=== PATIENT | female | born 1980 | race African-American/Black ===

== ENCOUNTER 2016-09-19 16:20 | Emergency (ER) | payer OTHER ==
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
--- NOTE | ~2016-09-19 | EKG ---
PATIENT: STEVEN GARCIA UNIT #: [id number] Ventricular Rate: 72 BPM Atrial Rate: 72 BPM P-R Interval: 136 ms QRS Duration: 80 ms Q-T Interval: 392 ms QTC Calculation(Bezet): 429 ms P [place]: 16 degrees Calculated R [place]: 33 degrees Calculated T [place]: 14 degrees Diagnosis Line: Normal sinus rhythm Diagnosis Line: Normal ECG Diagnosis Line: When compared with ECG of 20-JAN-2014 10:24, Diagnosis Line: No significant change was found Diagnosis Line: Confirmed by LIEN CARNEY MD ([id number]) on Diagnosis Line: 11/01/2016 7:02:14 AM INTERPRETING LORETTA OBRIEN
--- NOTE | ~2016-09-19 | CT16 ---
[facility] A Service of [facility] / [facility] RADIOLOGY TEXT RESULTS PATIENT: STEVEN GARCIA LOCATION: SED : 80 UNIT #: [id number] AGE: [address]: Abiodun Arrieta SEX: F ORDER DR: [id number] [place] [id number] E MR#: [id number] Acc #: [id number] NAME: STEVEN GARCIA : 1980 SEX: F STUDY DATE/TIME: 09/19/2016 18:42 UNIT: SED ROOM: STUDY DESCRIPTION: CT Angio Chest for PE Attending Physician: Abiodun Arrieta P.A.-C. Ordering Physician: Abiodun Arrieta P.A.-C. Primary Care Physician: Todd Weston M.D. MEDICAL IMAGING REPORT This report is preliminary unless electronic signature is present. EXAM CT scan of the chest with intravenous contrast, 09/19/2016 HISTORY Chest pain on inspiration for 3 days and back pain, elevated D-dimer of 298, evaluate for pulmonary embolus. TECHNIQUE Spiral CT was performed through the chest following intravenous contrast administration using pulmonary embolus protocol. 3-D reconstructions of the chest were then performed following intravenous contrast administration. This CT exam was performed with one or more of the following radiation dose reduction techniques: Automatic exposure control, adjustment of mA and/or kV according to patient size, and iterative reconstruction. FINDINGS There is no CT evidence for pulmonary embolus. The heart is normal in size. There is no significant thoracic adenopathy. There are no pleural effusions. The lungs are clear. IMPRESSION No CT evidence for pulmonary embolus. Dictated by... Mir Moore M.D. THIS IS AN ELECTRONICALLY VERIFIED REPORT Mir Moore M.D. at 09/20/2016 2:17 PM [facility] A Service of [facility] / [facility] RADIOLOGY TEXT RESULTS PATIENT: STEVEN GARCIA LOCATION: SED : 80 UNIT #: [id number] AGE: [address]: Abiodun Arrieta SEX: F ORDER DR: TD: 09/20/2016 03:40 JOB #: [id number] MEDICAL IMAGING REPORT
[~2016-09-19 16:20] MED LIST: ALEVE; AUGMENTIN875 MG PO; CILOXAN 0.3% O2.5 M1 OP; FLEXERIL10 MG PO; KEFLEX; NAPROSYN500 MG PO; NO MEDICATIONS; NORFLEX100 M1 PO; PEN-VEE K PO; SUDAFED PO; TRAMADOL PO; VICODIN 5/1 TAB 5/50 PO; VOLTAREN50 MG PO
[2016-09-19 16:49] LABS: BASOPHIL# 0.1 X10e3 (0-0.3); BASOPHIL% 1.1 % (0-2.5); EOSINOPHIL# 0.2 X10e3 (0-0.7); EOSINOPHIL% 2.8 % (0.0-7.0); HEMOGLOBIN 13.8 gm/dL (12.0-16.0); LYMPHOCYTE# 2.2 X10e3 (1.0-3.5); LYMPHOCYTE% 36.3 % (17.0-45.0); MEAN CELL VOLUME 88.2 FL (83-96); MEAN CORPUSCULAR HEMOGLOBIN 28.2 PG (28-34); MEAN PLATELET VOLUME 8.7 FL (6.5-11.5); MONOCYTE# 0.7 X10e3 (0-1.0); MONOCYTE% 11.7 % (3.0-12.0); NEUTROPHIL# 2.9 X10e3 (1.5-7.1); NEUTROPHIL% 48.1 % (40-75); PLATELET COUNT 275 X10e3 (140-420); RED BLOOD COUNT 4.88 X10e (3.90-5.30); RED CELL DISTRIBUTION WIDTH 13.3 % (11.0-15.5); WHITE BLOOD COUNT 5.9 X10e3 (4.0-10.5)
[2016-09-19 16:58] LABS: POC - CKMB <1.0 ng/mL (0.0-7.9); POC - MYOGLOBIN 59.3 ng/mL (0.0-169.0); POC - TROPONIN <0.05 ng/mL (<=0.05)
[2016-09-19 17:04] LABS: DIFF IND NO
[2016-09-19 17:16] LABS: ALBUMIN SERUM 4.2 g/dL (3.5-5.0); ALKALINE PHOSPHATASE 87 U/L (32-92); ALT (SGPT) 13 U/L (10-40); AST (SGOT) 15 U/L (10-42); BILIRUBIN, DIRECT 0.1 mg/dL (0.0-0.2); BILIRUBIN,INDIRECT 0.5 mg/dL (0.0-0.9); BILIRUBIN,TOTAL 0.6 mg/dL (0.2-2.0); BLOOD UREA NITROGEN 9 mg/dL (9-23); CALCIUM SERUM 8.8 mg/dL (8.4-10.2); CARBON DIOXIDE 24 mmol/L (22-31); CHLORIDE 106 mmol/L (100-111); CREATININE SERUM 0.9 mg/dL (0.6-1.4); GLOM FILT RATE Estimated ABOVE60 mL/min (>60); GLUCOSE FASTING 73 mg/dL (70-110); POTASSIUM 3.5 mmol/L (3.5-5.1); PROTEIN TOTAL SERUM 7.9 g/dL (6.0-8.3); SODIUM 136 mmol/L (135-145)
== END 2016-09-19 20:09 | disposition home or self-care (01) ==
LOC: SED 16:20
PROVIDERS: Physician Assistant
DX: R09.1 Pleurisy (principal)
CPT/HCPCS: 36415; 71020; 71275; 80048; 80076; 82553; 83874; 84484; 84703; 85025; 85379; 93005; 96361; 96374; 96375; 99284; J1885; J2405; Q9967